=== PATIENT | male | born 1925 | race African-American/Black ===

== ENCOUNTER 2017-04-20 00:18 | Emergency (ER) | payer MEDICAID, MEDICARE ==
[~2017-04-20] VITALS: Ht 172.7 cm; Wt 100.0 kg
[~2017-04-20 00:18] MED LIST: ALLO100T PO; ATEN-42 PO; CLOP75TA33 PO; DONE10TA11 PO; LEVO500T15 PO; LEVO75TA7 PO; LISI-604 PO; METF500T4 PO; PRAN1 PO; SIMV20TA6 PO; TERA5CAP4 PO; vancomycin IV
[2017-04-20] MEDS ORDERED: SODIUM CHLORIDE 0.9% 1,000 ML IV ONE (00:27)
[2017-04-20 01:00] LABS: BASOPHILS % 0.3 % (0.0-2.0); EOSINOPHILS % 4.7 % (0.0-5.0); HEMATOCRIT. 29.3 % (42.0-52.0); HEMOGLOBIN. 9.9 g/dL (14.0-18.0); LYMPHOCYTES % 20.7 % (20.0-50.0); MEAN CORPUSCULAR HEMOGLOBIN 30.6 pg (28.0-32.0); MEAN CORPUSCULAR VOLUME 90.2 fL (80.0-94.0); MEAN PLATELET VOLUME 6.8 fl (7.4-10.4); MONOCYTES % 9.2 % (2.0-8.0); NEUTROPHILS % 65.1 % (40.0-76.0); PLATELET 311 x1000/uL (130-400); RED BLOOD CELL COUNT 3.24 mill/uL (4.7-6.1); RED CELL DISTRIBUTION WIDTH 14.6 % (11.6-14.6)
[2017-04-20 01:06] LABS: CHLORIDE 105 mEq/L (98-107)
[2017-04-20 01:07] LABS: INR 1.1; PROTHROMBIN TIME 11.4 sec
[2017-04-20 01:14] LABS: CARBON DIOXIDE 27 mEq/L (21-32)
[2017-04-20 02:21] LABS: GLUCOSE URINE NEGATIVE (NEGATIVE); KETONES URINE TRACE (NEGATIVE); LEUKOCYTE ESTERASE URINE 3+ (NEGATIVE); NITRITE URINE NEGATIVE (NEGATIVE); OCCULT BLOOD URINE 3+ (NEGATIVE); PH URINE 6.5 (4.5-8.0); PROTEIN URINE 2+ (NEGATIVE); SPECIFIC GRAVITY URINE 1.011 (1.005-1.030)
[2017-04-20 02:28] LABS: CLARITY URINE CLOUDY (CLEAR); COLOR URINE BLOODY (YELLOW)
[2017-04-20] MEDS ORDERED: LEVOFLOXACIN 750MG PREMIX 150 ML IV ONE (02:45)
[2017-04-20 07:30] VITALS: BP 105/50
== END 2017-04-20 09:25 | disposition home or self-care (01) ==
LOC: ER 00:18
DX: N30.01 Acute cystitis with hematuria (principal); E11.9 Type 2 diabetes mellitus without complications; J44.9 Chronic obstructive pulmonary disease, unspecified; I10 Essential (primary) hypertension; I25.10 Atherosclerotic heart disease of native coronary artery without angina pectoris; F03.90 Unspecified dementia, unspecified severity, without behavioral disturbance, psychotic disturbance, mood disturbance, and anxiety; N40.0 Benign prostatic hyperplasia without lower urinary tract symptoms; E03.9 Hypothyroidism, unspecified; Z86.73 Personal history of transient ischemic attack (TIA), and cerebral infarction without residual deficits; Z88.0 Allergy status to penicillin
CPT/HCPCS: 36415; 80053; 81001; 85025; 85610; 96361; 96365; 96366; 99285; J1956; J7030

== ENCOUNTER 2017-05-14 12:54 | Inpatient (IN) | payer MEDICARE, MEDICAID ==
[2017-05-14] VITALS (34 sets, daily range): BP systolic 69–136; BP diastolic 41–79
[~2017-05-14] VITALS: Ht 182.9 cm; Wt 93.9 kg
[~2017-05-14 12:54] MED LIST changes: +ETOMIDATE 2MG/ML 10ML VIAL IV ONE; -LEVO500T15 PO; +LEVO500T2 PO; +STERILE WATER FOR INJECTION 10ML VIAL ONE; +VECURONIUM BROMIDE 10 MG/VIAL IV ONE
[2017-05-14] MEDS ORDERED: EPINEPHRINE 0.1MG/ML (1:10,000) 10ML SYR ONE (13:00)
[2017-05-14] MEDS ORDERED: SODIUM CHLORIDE 0.9% 1,000 ML IV ONE (13:10)
[2017-05-14] MEDS ORDERED: ATROPINE SULFATE 1MG/10ML SYR ONE (13:22)
[2017-05-14 13:52] LABS: CLARITY URINE TURBID (CLEAR); COLOR URINE DARK YELLOW (YELLOW); GLUCOSE URINE NEGATIVE (NEGATIVE); KETONES URINE TRACE (NEGATIVE); LEUKOCYTE ESTERASE URINE 3+ (NEGATIVE); NITRITE URINE NEGATIVE (NEGATIVE); OCCULT BLOOD URINE 3+ (NEGATIVE); PROTEIN URINE 3+ (NEGATIVE); SPECIFIC GRAVITY URINE 1.021 (1.005-1.030)
[2017-05-14] MEDS ORDERED: DOPAMINE 400MG PREMIX 250 ML IV ONE ×2 (13:57→14:30)
[2017-05-14] MEDS ORDERED: ATROPINE SULFATE 1MG/10ML SYR IV ONE (14:00)
[2017-05-14] MEDS ORDERED: VECURONIUM BROMIDE 10 MG/VIAL IV ONE (14:00)
[2017-05-14] MEDS ORDERED: NOREPINEPHRINE 4 MG in DEXT 5% WATER 246 ML IV ONE ×2 (14:00→14:15)
[2017-05-14] MEDS ORDERED: ETOMIDATE 2MG/ML 10ML VIAL IV ONE (14:00)
[2017-05-14 14:09] LABS: BG BASE EXCESS -7.2 mmol/L (-2.0-2.0); BG CARBOXYHEMOGLOBIN 0.3 % (0.5-1.5); BG DEOXYHEMOGLOBIN 0.2 % (0.0-5.0); BG HCO3 ACT 17.9 mmol/L (22.0-26.0); BG METHEMOGLOBIN 0.3 % (0.0-1.5); BG OXYGEN SATURATION 99.8 % (92.0-98.5); BG OXYHEMOGLOBIN 99.2 % (94.0-97.0); BG PCO2 34.9 mmHg (35.0-45.0); BG PH 7.329 (7.350-7.450); BG PO2 458.2 mmHg (75.0-100.0); BG SAMPLE SITE RIGHT BRACHIAL; BG TIDAL VOLUME(mL) 600 mL; BG VENT MODE VENT - A/C; BG VENT RATE 14 set
[2017-05-14 14:18] LABS: BASOPHILS % 0.3 % (0.0-2.0); EOSINOPHILS % 1.5 % (0.0-5.0); HEMATOCRIT. 31.9 % (42.0-52.0); HEMOGLOBIN. 10.4 g/dL (14.0-18.0); LYMPHOCYTES % 32.2 % (20.0-50.0); MEAN CORPUSCULAR HEMOGLOBIN 29.8 pg (28.0-32.0); MEAN CORPUSCULAR VOLUME 91.6 fL (80.0-94.0); MEAN PLATELET VOLUME 7.7 fl (7.4-10.4); MONOCYTES % 7.4 % (2.0-8.0); NEUTROPHILS % 58.6 % (40.0-76.0); PLATELET 172 x1000/uL (130-400); RED BLOOD CELL COUNT 3.48 mill/uL (4.7-6.1); RED CELL DISTRIBUTION WIDTH 16.2 % (11.6-14.6)
[2017-05-14 14:25] LABS: CHLORIDE 112 mEq/L (98-107)
[2017-05-14 14:27] LABS: INR 1.3; PARTIAL THROMBOPLASTIN TIME 40.1 sec (23.4-31.0); PROTHROMBIN TIME 13.4 sec (9.4-11.6)
[2017-05-14 14:33] LABS: CARBON DIOXIDE 23 mEq/L (21-32)
[2017-05-14 14:35] LABS: TROPONIN I < 0.02 ng/mL (0.00-0.04)
[2017-05-14] MEDS ORDERED: LEVOFLOXACIN 500MG PREMIX 100 ML IV ONE (15:15)
[2017-05-14] MEDS ORDERED: IPRATROPIUM/ALBUTEROL 0.5-3(2.5)MG/3ML NEB HHN PRN (15:45)
[2017-05-14] MEDS ORDERED: GUAIFENESIN 200MG/10ML SUGAR FREE UDC PO PRN (16:30)
[2017-05-14] MEDS ORDERED: NA PHOS,M-B/NA PHOS,DI-BA ENEMA 118ML PR PRN (16:30)
[2017-05-14] MEDS ORDERED: ACETAMINOPHEN 650MG SUPP PR PRN (16:30)
[2017-05-14] MEDS ORDERED: NOREPINEPHRINE 4 MG in DEXT 5% WATER 246 ML IV PRN ×2 (16:30→17:00)
[2017-05-14] MEDS ORDERED: IPRATROPIUM/ALBUTEROL 0.5-3(2.5)MG/3ML NEB INH SCH (16:30)
[2017-05-14] MEDS ORDERED: ACETAMINOPHEN 325MG TABLET PO PRN (16:30)
[2017-05-14] MEDS ORDERED: CLONIDINE 0.1MG TABLET PO PRN (16:30)
[2017-05-14] MEDS ORDERED: MAGNESIUM/ALUMINUM HYDROXIDE/SIMETHICONE 30ML UDC PO PRN (16:30)
[2017-05-14] MEDS ORDERED: DIPHENHYDRAMINE 50MG/ML VIAL IV PRN (16:30)
[2017-05-14] MEDS ORDERED: ONDANSETRON HCL 4MG/2ML VIAL IV PRN (16:30)
[2017-05-14] MEDS ORDERED: DOCUSATE SODIUM 100MG CAPSULE PO PRN (16:30)
[2017-05-14] MEDS ORDERED: PIPERACILLIN/TAZ 3.375G PREMIX 50 ML IV SCH (16:30)
[2017-05-14] MEDS ORDERED: IPRATROPIUM/ALBUTEROL 0.5-3(2.5)MG/3ML NEB INH PRN (16:30)
[2017-05-14] MEDS ORDERED: ENOXAPARIN 40MG/0.4ML SYR SUBCUT SCH (17:00)
[2017-05-14] MEDS: DEXT 5%/0.45% NACL 1000ML 1,000 ML IV SCH (17:55)
[2017-05-14] MEDS: IPRATROPIUM/ALBUTEROL 0.5-3(2.5)MG/3ML NEB HHN SCH (20:27)
[2017-05-14] MEDS: ENOXAPARIN 30MG/0.3ML SYR SUBCUT SCH (20:45)
[2017-05-14] MEDS: MEROPENEM 1000MG in NORMAL SALINE 100ML IV SCH (20:45)
[2017-05-14] MEDS: ASPIRIN 81MG TABLET PO SCH (20:46)
[2017-05-14] MEDS: ATORVASTATIN CALCIUM 10MG TABLET NG SCH (20:46)
[2017-05-14] MEDS ORDERED: LEVOFLOXACIN 500MG PREMIX 100 ML IV NR (21:00)
[2017-05-14] MEDS ORDERED: VANCOMYCIN 1500MG in DEXTROSE 5% WATER 250ML IV NR (21:00)
[2017-05-14] MEDS: SODIUM CHLORIDE 0.9% INJ 3ML FLUSH IVF SCH (21:17)
[2017-05-14] MEDS ORDERED: NOREPINEPHRINE 8 MG in DEXT 5% WATER 242 ML IV PRN (22:00)
[2017-05-14 23:30] LABS: CREATINE KINASE 39 IU/L (39-308)
[2017-05-15] VITALS (92 sets, daily range): BP systolic 78–133; BP diastolic 44–78
[2017-05-15] MEDS ORDERED: PHENYLEPHRINE 80 MG in DEXT 5% WATER 500 ML IV PRN ×2
[2017-05-15] MEDS: IPRATROPIUM/ALBUTEROL 0.5-3(2.5)MG/3ML NEB HHN SCH ×6 (00:16→20:22)
[2017-05-15] MEDS: NOREPINEPHRINE 32 MG in DEXT 5% WATER 468 ML IV PRN (04:22)
[2017-05-15] MEDS: DEXT 5%/0.45% NACL 1000ML 1,000 ML IV SCH ×3 (05:21→15:24)
[2017-05-15] MEDS: SODIUM CHLORIDE 0.9% INJ 3ML FLUSH IVF SCH ×3 (05:21→21:03)
[2017-05-15 05:46] LABS: HEMATOCRIT. 33.2 % (42.0-52.0); HEMOGLOBIN. 10.9 g/dL (14.0-18.0); MEAN CORPUSCULAR HEMOGLOBIN 29.7 pg (28.0-32.0); MEAN CORPUSCULAR VOLUME 90.2 fL (80.0-94.0); MEAN PLATELET VOLUME 8.4 fl (7.4-10.4); PLATELET 203 x1000/uL (130-400); RED BLOOD CELL COUNT 3.68 mill/uL (4.7-6.1); RED CELL DISTRIBUTION WIDTH 16.1 % (11.6-14.6)
[2017-05-15 06:47] LABS: CARBON DIOXIDE 17 mEq/L (21-32); CHLORIDE 105 mEq/L (98-107); HDL CHOLESTEROL 47 mg/dL (40-59); LDL CHOLESTEROL 19 mg/dL (5-100)
[2017-05-15 06:56] LABS: CREATINE KINASE 45 IU/L (39-308)
[2017-05-15] MEDS: MEROPENEM 1000MG in NORMAL SALINE 100ML IV SCH ×2 (08:39→20:18)
[2017-05-15] MEDS: PANTOPRAZOLE SODIUM 40 MG/VIAL IV SCH (08:39)
[2017-05-15 08:43] LABS: BG BASE EXCESS -7.5 mmol/L (-2.0-2.0); BG CARBOXYHEMOGLOBIN 0.3 % (0.5-1.5); BG DEOXYHEMOGLOBIN 2.2 % (0.0-5.0); BG FRACTION INSPIRED OXYGEN 50; BG HCO3 ACT 16.4 mmol/L (22.0-26.0); BG METHEMOGLOBIN 0.1 % (0.0-1.5); BG OXYGEN SATURATION 97.8 % (92.0-98.5); BG OXYHEMOGLOBIN 97.4 % (94.0-97.0); BG PCO2 28.2 mmHg (35.0-45.0); BG PH 7.382 (7.350-7.450); BG PO2 106.6 mmHg (75.0-100.0); BG SAMPLE SITE RIGHT RADIAL; BG TIDAL VOLUME(mL) 550 mL; BG VENT MODE VENT - A/C; BG VENT RATE 14 set
[2017-05-15 11:42] LABS: PLATELET ESTIMATE NORMAL
[2017-05-15] MEDS: ENOXAPARIN 30MG/0.3ML SYR SUBCUT SCH (19:42)
[2017-05-15] MEDS: LEVOFLOXACIN 250MG PREMIX 50 ML IV SCH (19:43)
[2017-05-15] MEDS: ATORVASTATIN CALCIUM 10MG TABLET NG SCH (20:18)
[2017-05-15] MEDS: ASPIRIN 81MG TABLET PO SCH (20:18)
[2017-05-16] VITALS (94 sets, daily range): BP systolic 77–143; BP diastolic 38–75
[2017-05-16] MEDS: IPRATROPIUM/ALBUTEROL 0.5-3(2.5)MG/3ML NEB HHN SCH ×6 (00:11→20:42)
[2017-05-16] MEDS: DEXT 5%/0.45% NACL 1000ML 1,000 ML IV SCH ×3 (02:20→22:30)
[2017-05-16] MEDS ORDERED: ATROPINE SULFATE 1MG/10ML SYR IV PRN (04:15)
[2017-05-16 05:52] LABS: HEMATOCRIT. 29.5 % (42.0-52.0); HEMOGLOBIN. 9.9 g/dL (14.0-18.0); MEAN CORPUSCULAR HEMOGLOBIN 30.1 pg (28.0-32.0); MEAN CORPUSCULAR VOLUME 89.3 fL (80.0-94.0); MEAN PLATELET VOLUME 8.1 fl (7.4-10.4); PLATELET 162 x1000/uL (130-400); RED CELL DISTRIBUTION WIDTH 16.5 % (11.6-14.6)
[2017-05-16] MEDS: SODIUM CHLORIDE 0.9% INJ 3ML FLUSH IVF SCH ×3 (06:26→22:30)
[2017-05-16] MEDS: NOREPINEPHRINE 32 MG in DEXT 5% WATER 468 ML IV PRN ×2 (06:29→15:55)
[2017-05-16] MEDS: PANTOPRAZOLE SODIUM 40 MG/VIAL IV SCH (08:06)
[2017-05-16] MEDS: MEROPENEM 1000MG in NORMAL SALINE 100ML IV SCH ×2 (08:07→21:06)
[2017-05-16 08:45] LABS: NUCLEATED RED BLOOD CELLS 1 /100 WBC; PLATELET ESTIMATE NORMAL
[2017-05-16 08:52] LABS: BG BASE EXCESS -5.9 mmol/L (-2.0-2.0); BG CARBOXYHEMOGLOBIN 0.3 % (0.5-1.5); BG DEOXYHEMOGLOBIN 1.1 % (0.0-5.0); BG FRACTION INSPIRED OXYGEN 40; BG HCO3 ACT 18.5 mmol/L (22.0-26.0); BG METHEMOGLOBIN 0.3 % (0.0-1.5); BG OXYGEN SATURATION 98.9 % (92.0-98.5); BG OXYHEMOGLOBIN 98.3 % (94.0-97.0); BG PCO2 32.8 mmHg (35.0-45.0); BG PO2 153.8 mmHg (75.0-100.0); BG SAMPLE SITE LEFT RADIAL; BG TIDAL VOLUME(mL) 550 mL; BG TOTAL HEMOGLOBIN 10.5 g/dL (12.0-18.0); BG VENT MODE VENT - A/C; BG VENT RATE 14 set
[2017-05-16] MEDS ORDERED: VANCOMYCIN 1250MG in DEXTROSE 5% WATER 250ML IV NR (10:00)
[2017-05-16] MEDS: MAGNESIUM OXIDE 400MG TABLET NG SCH (11:48)
[2017-05-16] MEDS: ENOXAPARIN 30MG/0.3ML SYR SUBCUT SCH (20:08)
[2017-05-16] MEDS: LEVOFLOXACIN 250MG PREMIX 50 ML IV SCH (20:13)
[2017-05-16] MEDS: ATORVASTATIN CALCIUM 10MG TABLET NG SCH (21:06)
[2017-05-16] MEDS: ASPIRIN 81MG TABLET PO SCH (21:08)
[2017-05-17] VITALS (103 sets, daily range): BP systolic 71–136; BP diastolic 40–88
[2017-05-17] MEDS: IPRATROPIUM/ALBUTEROL 0.5-3(2.5)MG/3ML NEB HHN SCH ×6 (00:25→20:16)
[2017-05-17 05:01] LABS: HEMATOCRIT. 27.4 % (42.0-52.0); HEMOGLOBIN. 9.4 g/dL (14.0-18.0); MEAN CORPUSCULAR HEMOGLOBIN 30.4 pg (28.0-32.0); MEAN PLATELET VOLUME 8.2 fl (7.4-10.4); PLATELET 133 x1000/uL (130-400); RED BLOOD CELL COUNT 3.08 mill/uL (4.7-6.1); RED CELL DISTRIBUTION WIDTH 16.5 % (11.6-14.6)
[2017-05-17] MEDS: SODIUM CHLORIDE 0.9% INJ 3ML FLUSH IVF SCH ×2 (06:43→14:13)
[2017-05-17] MEDS: DEXT 5%/0.45% NACL 1000ML 1,000 ML IV SCH ×2 (06:53→09:16)
[2017-05-17] MEDS: PANTOPRAZOLE SODIUM 40 MG/VIAL IV SCH (09:16)
[2017-05-17] MEDS: MEROPENEM 1000MG in NORMAL SALINE 100ML IV SCH ×2 (09:16→21:03)
[2017-05-17] MEDS: MAGNESIUM OXIDE 400MG TABLET NG SCH (09:16)
[2017-05-17] MEDS: NOREPINEPHRINE 32 MG in DEXT 5% WATER 468 ML IV PRN ×2 (09:33→13:38)
[2017-05-17] MEDS ORDERED: MAGNESIUM 2 G PREMIX 50 ML IV SCH (11:00)
[2017-05-17] MEDS ORDERED: BLOOD SUGAR DIAGNOSTIC STRIP TEST SCH ×2 (12:30→12:50)
[2017-05-17] MEDS ORDERED: INSULIN LISPRO 100 UNITS/ML SUBCUT SCH ×2 (12:30→13:20)
[2017-05-17 12:31] LABS: NUCLEATED RED BLOOD CELLS 2 /100 WBC; PLATELET ESTIMATE NORMAL
[2017-05-17] MEDS: VANCOMYCIN 1 G PREMIX 200 ML IV SCH (15:20)
[2017-05-17] MEDS: BLOOD SUGAR DIAGNOSTIC STRIP TEST SCH (17:58)
[2017-05-17] MEDS: INSULIN LISPRO 100 UNITS/ML SUBCUT SCH (18:06)
[2017-05-17] MEDS: ENOXAPARIN 30MG/0.3ML SYR SUBCUT SCH (19:58)
[2017-05-17] MEDS: LEVOFLOXACIN 250MG PREMIX 50 ML IV SCH (19:59)
[2017-05-17] MEDS: ATORVASTATIN CALCIUM 10MG TABLET NG SCH (21:04)
[2017-05-17] MEDS: ASPIRIN 81MG TABLET PO SCH (21:04)
[2017-05-18] VITALS (78 sets, daily range): BP systolic 79–132; BP diastolic 35–75
[2017-05-18] MEDS: IPRATROPIUM/ALBUTEROL 0.5-3(2.5)MG/3ML NEB HHN SCH ×6 (00:29→20:03)
[2017-05-18] MEDS: INSULIN LISPRO 100 UNITS/ML SUBCUT SCH ×4 (00:46→18:23)
[2017-05-18] MEDS: SODIUM CHLORIDE 0.9% INJ 3ML FLUSH IVF SCH ×4 (00:48→20:46)
[2017-05-18] MEDS: BLOOD SUGAR DIAGNOSTIC STRIP TEST SCH ×4 (06:00→18:16)
[2017-05-18 07:57] LABS: BG BASE EXCESS -2.7 mmol/L (-2.0-2.0); BG CARBOXYHEMOGLOBIN 0.2 % (0.5-1.5); BG DEOXYHEMOGLOBIN 1.2 % (0.0-5.0); BG FRACTION INSPIRED OXYGEN 40; BG HCO3 ACT 20.5 mmol/L (22.0-26.0); BG METHEMOGLOBIN 0.1 % (0.0-1.5); BG OXYGEN SATURATION 98.8 % (92.0-98.5); BG OXYHEMOGLOBIN 98.5 % (94.0-97.0); BG PCO2 29.6 mmHg (35.0-45.0); BG PH 7.458 (7.350-7.450); BG PO2 169.1 mmHg (75.0-100.0); BG SAMPLE SITE RIGHT RADIAL; BG TIDAL VOLUME(mL) 550 mL; BG TOTAL HEMOGLOBIN 8.9 g/dL (12.0-18.0); BG VENT MODE VENT - A/C; BG VENT RATE 14 set
[2017-05-18] MEDS: PANTOPRAZOLE SODIUM 40 MG/VIAL IV SCH (08:07)
[2017-05-18] MEDS: MEROPENEM 1000MG in NORMAL SALINE 100ML IV SCH ×2 (08:08→20:45)
[2017-05-18] MEDS: MAGNESIUM OXIDE 400MG TABLET NG SCH (08:08)
[2017-05-18 08:52] LABS: HEMATOCRIT 24.8 % (42.0-52.0); HEMOGLOBIN 8.4 g/dL (14.0-18.0); MEAN CORPUSCULAR HEMOGLOBIN 30.1 pg (28.0-32.0); MEAN CORPUSCULAR VOLUME 88.8 fL (80.0-94.0); PLATELET 129 x1000/uL (130-400); RED BLOOD CELL COUNT 2.79 mill/uL (4.7-6.1); RED CELL DISTRIBUTION WIDTH 16.3 % (11.6-14.6)
[2017-05-18] MEDS: MIDODRINE HCL 5MG TABLET PO SCH ×3 (09:23→18:17)
[2017-05-18] MEDS ORDERED: ACETYLCYSTEINE 100MG/ML 10% VIAL 4ML INH SCH (12:00)
[2017-05-18] MEDS: ACETYLCYSTEINE 100MG/ML 10% VIAL 4ML INH SCH ×3 (12:21→20:04)
[2017-05-18] MEDS: VANCOMYCIN 1 G PREMIX 200 ML IV SCH (15:27)
[2017-05-18] MEDS: DOCUSATE SODIUM SUGAR FREE 100MG/10ML UDC NG PRN (18:17)
[2017-05-18] MEDS: ASPIRIN 81MG TABLET PO SCH (20:45)
[2017-05-18] MEDS: LEVOFLOXACIN 250MG PREMIX 50 ML IV SCH (20:45)
[2017-05-18] MEDS: ATORVASTATIN CALCIUM 10MG TABLET NG SCH (20:46)
[2017-05-19] VITALS (53 sets, daily range): BP systolic 82–134; BP diastolic 38–98
[2017-05-19] MEDS: IPRATROPIUM/ALBUTEROL 0.5-3(2.5)MG/3ML NEB HHN SCH ×7 (00:05→23:55)
[2017-05-19] MEDS: ACETYLCYSTEINE 100MG/ML 10% VIAL 4ML INH SCH ×6 (00:05→23:54)
[2017-05-19] MEDS: BLOOD SUGAR DIAGNOSTIC STRIP TEST SCH ×4 (00:15→17:04)
[2017-05-19] MEDS: INSULIN LISPRO 100 UNITS/ML SUBCUT SCH ×4 (00:16→17:04)
[2017-05-19] MEDS ORDERED: VANCOMYCIN 1 G PREMIX 200 ML IV SCH (03:00)
[2017-05-19] MEDS: VANCOMYCIN 1 G PREMIX 200 ML IV SCH (03:10)
[2017-05-19] MEDS: SODIUM CHLORIDE 0.9% INJ 3ML FLUSH IVF SCH ×3 (05:07→21:17)
[2017-05-19 06:50] LABS: HEMATOCRIT 22.8 % (42.0-52.0); HEMOGLOBIN 7.9 g/dL (14.0-18.0); MEAN CORPUSCULAR HEMOGLOBIN 30.7 pg (28.0-32.0); MEAN CORPUSCULAR VOLUME 88.9 fL (80.0-94.0); PLATELET 107 x1000/uL (130-400); RED BLOOD CELL COUNT 2.56 mill/uL (4.7-6.1); RED CELL DISTRIBUTION WIDTH 15.8 % (11.6-14.6)
[2017-05-19] MEDS: PANTOPRAZOLE SODIUM 40 MG/VIAL IV SCH (08:26)
[2017-05-19] MEDS: MEROPENEM 1000MG in NORMAL SALINE 100ML IV SCH ×2 (08:26→21:17)
[2017-05-19] MEDS: MIDODRINE HCL 5MG TABLET PO SCH ×3 (08:27→17:06)
[2017-05-19] MEDS: MAGNESIUM OXIDE 400MG TABLET NG SCH (08:27)
[2017-05-19] MEDS: METOCLOPRAMIDE HCL 10MG/2ML VIAL IV SCH ×2 (11:26→17:06)
[2017-05-19 12:58] LABS: BG BASE EXCESS 0.3 mmol/L (-2.0-2.0); BG CARBOXYHEMOGLOBIN 0.3 % (0.5-1.5); BG DEOXYHEMOGLOBIN 2.1 % (0.0-5.0); BG FRACTION INSPIRED OXYGEN 40; BG METHEMOGLOBIN 0.3 % (0.0-1.5); BG OXYGEN SATURATION 97.9 % (92.0-98.5); BG OXYHEMOGLOBIN 97.3 % (94.0-97.0); BG PCO2 35.2 mmHg (35.0-45.0); BG PH 7.452 (7.350-7.450); BG PO2 109.7 mmHg (75.0-100.0); BG PRESSURE SUPPORT 6; BG SAMPLE SITE RIGHT BRACHIAL; BG TOTAL HEMOGLOBIN 10.1 g/dL (12.0-18.0); BG VENT MODE VENT - CPAP
[2017-05-19] MEDS: NOREPINEPHRINE 32 MG in DEXT 5% WATER 468 ML IV PRN (18:58)
[2017-05-19] MEDS: ASPIRIN 81MG TABLET PO SCH (21:17)
[2017-05-19] MEDS: ATORVASTATIN CALCIUM 10MG TABLET NG SCH (21:17)
[2017-05-20] VITALS (69 sets, daily range): BP systolic 83–125; BP diastolic 40–73
[2017-05-20] MEDS: BLOOD SUGAR DIAGNOSTIC STRIP TEST SCH ×4 (00:04→17:28)
[2017-05-20] MEDS: METOCLOPRAMIDE HCL 10MG/2ML VIAL IV SCH ×4 (00:08→17:33)
[2017-05-20] MEDS: INSULIN LISPRO 100 UNITS/ML SUBCUT SCH ×4 (00:10→17:34)
[2017-05-20] MEDS: ACETYLCYSTEINE 100MG/ML 10% VIAL 4ML INH SCH ×5 (04:08→20:30)
[2017-05-20] MEDS: IPRATROPIUM/ALBUTEROL 0.5-3(2.5)MG/3ML NEB HHN SCH ×5 (04:08→20:30)
[2017-05-20] MEDS: SODIUM CHLORIDE 0.9% INJ 3ML FLUSH IVF SCH ×3 (05:21→22:31)
[2017-05-20 05:57] LABS: BASOPHILS % 0.4 % (0.0-2.0); EOSINOPHILS % 4.8 % (0.0-5.0); HEMATOCRIT. 24.4 % (42.0-52.0); HEMOGLOBIN. 8.2 g/dL (14.0-18.0); MEAN CORPUSCULAR VOLUME 89.6 fL (80.0-94.0); MEAN PLATELET VOLUME 8.6 fl (7.4-10.4); MONOCYTES % 13.4 % (2.0-8.0); NEUTROPHILS % 70.4 % (40.0-76.0); PLATELET 118 x1000/uL (130-400); RED BLOOD CELL COUNT 2.72 mill/uL (4.7-6.1); RED CELL DISTRIBUTION WIDTH 15.9 % (11.6-14.6)
[2017-05-20 07:39] LABS: BG BASE EXCESS 2.1 mmol/L (-2.0-2.0); BG CARBOXYHEMOGLOBIN 0.3 % (0.5-1.5); BG METHEMOGLOBIN 0.2 % (0.0-1.5); BG OXYHEMOGLOBIN 97.5 % (94.0-97.0); BG PCO2 37.7 mmHg (35.0-45.0); BG PH 7.457 (7.350-7.450); BG PO2 112.9 mmHg (75.0-100.0); BG SAMPLE SITE RIGHT RADIAL; BG VENT MODE MASK - AEROSOL
[2017-05-20] MEDS: PANTOPRAZOLE SODIUM 40 MG/VIAL IV SCH (08:24)
[2017-05-20] MEDS: MEROPENEM 1000MG in NORMAL SALINE 100ML IV SCH ×2 (08:24→20:12)
[2017-05-20] MEDS: MAGNESIUM OXIDE 400MG TABLET NG SCH (08:24)
[2017-05-20] MEDS: MIDODRINE HCL 5MG TABLET PO SCH ×3 (08:24→17:33)
[2017-05-20] MEDS: VANCOMYCIN 1 G PREMIX 200 ML IV SCH (15:15)
[2017-05-20] MEDS: ASPIRIN 81MG TABLET PO SCH (20:12)
[2017-05-20] MEDS: ATORVASTATIN CALCIUM 10MG TABLET NG SCH (20:12)
[2017-05-20] MEDS: DOCUSATE SODIUM SUGAR FREE 100MG/10ML UDC NG PRN (20:12)
[2017-05-21] VITALS (49 sets, daily range): BP systolic 92–143; BP diastolic 36–79
[2017-05-21] MEDS: METOCLOPRAMIDE HCL 10MG/2ML VIAL IV SCH ×4 (00:04→18:02)
[2017-05-21] MEDS: INSULIN LISPRO 100 UNITS/ML SUBCUT SCH ×4 (00:04→18:01)
[2017-05-21] MEDS: BLOOD SUGAR DIAGNOSTIC STRIP TEST SCH ×4 (00:07→17:50)
[2017-05-21] MEDS: ACETYLCYSTEINE 100MG/ML 10% VIAL 4ML INH SCH ×5 (00:24→20:05)
[2017-05-21] MEDS: IPRATROPIUM/ALBUTEROL 0.5-3(2.5)MG/3ML NEB HHN SCH ×6 (00:24→20:04)
[2017-05-21] MEDS: SODIUM CHLORIDE 0.9% INJ 3ML FLUSH IVF SCH ×3 (05:46→20:23)
[2017-05-21 06:43] LABS: HEMOGLOBIN. 8.6 g/dL (14.0-18.0); MEAN CORPUSCULAR VOLUME 90.3 fL (80.0-94.0); MEAN PLATELET VOLUME 8.3 fl (7.4-10.4); PLATELET 146 x1000/uL (130-400); RED BLOOD CELL COUNT 2.88 mill/uL (4.7-6.1); RED CELL DISTRIBUTION WIDTH 15.9 % (11.6-14.6)
[2017-05-21 07:00] LABS: CARBON DIOXIDE 27 mEq/L (21-32); CHLORIDE 109 mEq/L (98-107)
[2017-05-21] MEDS: PANTOPRAZOLE SODIUM 40 MG/VIAL IV SCH (09:01)
[2017-05-21] MEDS: MIDODRINE HCL 5MG TABLET PO SCH ×3 (09:02→17:16)
[2017-05-21] MEDS: MEROPENEM 1000MG in NORMAL SALINE 100ML IV SCH ×2 (09:03→20:23)
[2017-05-21] MEDS: MAGNESIUM OXIDE 400MG TABLET NG SCH (09:03)
[2017-05-21 11:05] LABS: PLATELET ESTIMATE NORMAL
[2017-05-21 16:52] LABS: GLUCOSE URINE TRACE (NEGATIVE); KETONES URINE 2+ (NEGATIVE); LEUKOCYTE ESTERASE URINE 3+ (NEGATIVE); NITRITE URINE POSITIVE (NEGATIVE); OCCULT BLOOD URINE 3+ (NEGATIVE); PROTEIN URINE 3+ (NEGATIVE); SPECIFIC GRAVITY URINE 1.015 (1.005-1.030)
[2017-05-21 16:57] LABS: CLARITY URINE CLOUDY (CLEAR); COLOR URINE BLOODY (YELLOW)
[2017-05-21] MEDS: ATORVASTATIN CALCIUM 10MG TABLET NG SCH (20:23)
[2017-05-21] MEDS: DOCUSATE SODIUM SUGAR FREE 100MG/10ML UDC NG PRN (20:23)
[2017-05-22] VITALS (34 sets, daily range): BP systolic 103–160; BP diastolic 47–92
[2017-05-22] MEDS: BLOOD SUGAR DIAGNOSTIC STRIP TEST SCH ×4 (00:05→17:15)
[2017-05-22] MEDS: METOCLOPRAMIDE HCL 10MG/2ML VIAL IV SCH ×4 (00:13→17:15)
[2017-05-22] MEDS: INSULIN LISPRO 100 UNITS/ML SUBCUT SCH ×4 (00:14→17:14)
[2017-05-22] MEDS: ACETYLCYSTEINE 100MG/ML 10% VIAL 4ML INH SCH ×6 (00:30→20:00)
[2017-05-22] MEDS: IPRATROPIUM/ALBUTEROL 0.5-3(2.5)MG/3ML NEB HHN SCH ×6 (00:30→20:11)
[2017-05-22] MEDS: VANCOMYCIN 1 G PREMIX 200 ML IV SCH (02:48)
[2017-05-22] MEDS: SODIUM CHLORIDE 0.9% INJ 3ML FLUSH IVF SCH ×3 (05:29→21:40)
[2017-05-22] MEDS: DOCUSATE SODIUM SUGAR FREE 100MG/10ML UDC NG PRN (05:29)
[2017-05-22 05:59] LABS: HEMOGLOBIN. 8.5 g/dL (14.0-18.0); MEAN CORPUSCULAR HEMOGLOBIN 30.7 pg (28.0-32.0); MEAN CORPUSCULAR VOLUME 90.3 fL (80.0-94.0); MEAN PLATELET VOLUME 8.4 fl (7.4-10.4); PLATELET 200 x1000/uL (130-400); RED BLOOD CELL COUNT 2.76 mill/uL (4.7-6.1); RED CELL DISTRIBUTION WIDTH 15.6 % (11.6-14.6)
[2017-05-22 06:45] LABS: CARBON DIOXIDE 29 mEq/L (21-32); CHLORIDE 106 mEq/L (98-107)
[2017-05-22] MEDS: PANTOPRAZOLE SODIUM 40 MG/VIAL IV SCH (09:30)
[2017-05-22] MEDS: MAGNESIUM OXIDE 400MG TABLET NG SCH (09:30)
[2017-05-22] MEDS: MEROPENEM 1000MG in NORMAL SALINE 100ML IV SCH ×2 (09:30→21:40)
[2017-05-22] MEDS: MIDODRINE HCL 5MG TABLET PO SCH (09:30)
[2017-05-22 10:55] LABS: PLATELET ESTIMATE NORMAL
[2017-05-22] MEDS: MIDODRINE HCL 2.5MG TABLET PO SCH ×2 (12:57→16:55)
[2017-05-22] MEDS: INSULIN DETEMIR UD 100 UNITS/ML SYR SUBCUT SCH (12:58)
[2017-05-22] MEDS: ATORVASTATIN CALCIUM 10MG TABLET NG SCH (21:40)
[2017-05-23] VITALS (18 sets, daily range): BP systolic 95–113; BP diastolic 46–65
[2017-05-23] MEDS: METOCLOPRAMIDE HCL 10MG/2ML VIAL IV SCH ×5 (00:24→23:30)
[2017-05-23] MEDS: BLOOD SUGAR DIAGNOSTIC STRIP TEST SCH ×5 (00:24→23:26)
[2017-05-23] MEDS: IPRATROPIUM/ALBUTEROL 0.5-3(2.5)MG/3ML NEB HHN SCH ×6 (00:28→20:41)
[2017-05-23] MEDS: ACETYLCYSTEINE 100MG/ML 10% VIAL 4ML INH SCH ×6 (00:28→20:41)
[2017-05-23] MEDS: SODIUM CHLORIDE 0.9% INJ 3ML FLUSH IVF SCH ×3 (06:38→21:05)
[2017-05-23] MEDS: INSULIN LISPRO 100 UNITS/ML SUBCUT SCH ×5 (06:43→23:27)
[2017-05-23 08:02] LABS: BASOPHILS % 0.7 % (0.0-2.0); EOSINOPHILS % 5.4 % (0.0-5.0); HEMATOCRIT. 22.7 % (42.0-52.0); HEMOGLOBIN. 7.5 g/dL (14.0-18.0); LYMPHOCYTES % 10.3 % (20.0-50.0); MEAN CORPUSCULAR HEMOGLOBIN 29.9 pg (28.0-32.0); MEAN CORPUSCULAR VOLUME 90.8 fL (80.0-94.0); MEAN PLATELET VOLUME 8.2 fl (7.4-10.4); MONOCYTES % 11.6 % (2.0-8.0); PLATELET 264 x1000/uL (130-400); RED CELL DISTRIBUTION WIDTH 15.7 % (11.6-14.6)
[2017-05-23 08:18] LABS: CARBON DIOXIDE 29 mEq/L (21-32); CHLORIDE 104 mEq/L (98-107)
[2017-05-23] MEDS: MIDODRINE HCL 2.5MG TABLET PO SCH ×3 (08:21→17:12)
[2017-05-23] MEDS: MAGNESIUM OXIDE 400MG TABLET NG SCH (08:22)
[2017-05-23] MEDS: PANTOPRAZOLE SODIUM 40 MG/VIAL IV SCH (08:22)
[2017-05-23] MEDS: INSULIN DETEMIR UD 100 UNITS/ML SYR SUBCUT SCH (09:22)
[2017-05-23] MEDS ORDERED: INSULIN DETEMIR UD 100 UNITS/ML SYR SUBCUT SCH (11:00)
[2017-05-23] MEDS: LEVOTHYROXINE SODIUM 50MCG TABLET PO SCH (12:57)
[2017-05-23] MEDS: SODIUM CHLORIDE 0.9% 1,000 ML IV SCH (12:57)
[2017-05-23] MEDS: ATORVASTATIN CALCIUM 10MG TABLET NG SCH (21:05)
[2017-05-24] VITALS (16 sets, daily range): BP systolic 92–122; BP diastolic 48–70
[2017-05-24] MEDS: ACETYLCYSTEINE 100MG/ML 10% VIAL 4ML INH SCH ×6 (00:11→20:08)
[2017-05-24] MEDS: IPRATROPIUM/ALBUTEROL 0.5-3(2.5)MG/3ML NEB HHN SCH ×6 (00:11→20:08)
[2017-05-24] MEDS: SODIUM CHLORIDE 0.9% 1,000 ML IV SCH (03:10)
[2017-05-24] MEDS: BLOOD SUGAR DIAGNOSTIC STRIP TEST SCH ×4 (05:07→23:47)
[2017-05-24] MEDS: METOCLOPRAMIDE HCL 10MG/2ML VIAL IV SCH ×4 (05:10→23:47)
[2017-05-24] MEDS: SODIUM CHLORIDE 0.9% INJ 3ML FLUSH IVF SCH ×2 (05:10→21:25)
[2017-05-24] MEDS: INSULIN LISPRO 100 UNITS/ML SUBCUT SCH ×4 (05:10→23:47)
[2017-05-24] MEDS: DEXTROSE 50% WATER 50ML SYRINGE IV PRN ×3 (05:16→17:19)
[2017-05-24] MEDS: LEVOTHYROXINE SODIUM 50MCG TABLET PO SCH (06:33)
[2017-05-24 06:53] LABS: INR 1.2; PARTIAL THROMBOPLASTIN TIME 29.8 sec (23.4-31.0); PROTHROMBIN TIME 12.1 sec (9.4-11.6)
[2017-05-24 06:55] LABS: HEMATOCRIT. 21.6 % (42.0-52.0); HEMOGLOBIN. 7.2 g/dL (14.0-18.0); MEAN CORPUSCULAR HEMOGLOBIN 29.9 pg (28.0-32.0); MEAN CORPUSCULAR VOLUME 90.3 fL (80.0-94.0); MEAN PLATELET VOLUME 7.5 fl (7.4-10.4); PLATELET 360 x1000/uL (130-400); RED BLOOD CELL COUNT 2.39 mill/uL (4.7-6.1); RED CELL DISTRIBUTION WIDTH 15.5 % (11.6-14.6)
[2017-05-24 07:36] LABS: CHLORIDE 106 mEq/L (98-107)
[2017-05-24 07:47] LABS: CARBON DIOXIDE 29 mEq/L (21-32); PHOSPHORUS 3.3 mg/dL (2.5-4.9)
[2017-05-24] MEDS: MAGNESIUM OXIDE 400MG TABLET NG SCH (08:23)
[2017-05-24] MEDS: PANTOPRAZOLE SODIUM 40 MG/VIAL IV SCH (08:23)
[2017-05-24] MEDS: VANCOMYCIN 1 G PREMIX 200 ML IV SCH (08:23)
[2017-05-24] MEDS: MIDODRINE HCL 2.5MG TABLET PO SCH ×3 (08:23→17:00)
[2017-05-24] MEDS ORDERED: SIMETHICONE 40 MG/0.6 ML 30ML ONE (12:00)
[2017-05-24] MEDS ORDERED: SODIUM CHLORIDE 0.9% 10ML VIAL ONE (12:00)
[2017-05-24] MEDS ORDERED: MIDAZOLAM HCL 5 MG/5 ML VIAL ONE (12:03)
[2017-05-24] MEDS ORDERED: MIDAZOLAM HCL 5 MG/5 ML VIAL IV ONE (13:00)
[2017-05-24] MEDS: DEXT 5%/0.9% NACL 1,000 ML IV SCH (17:55)
[2017-05-24 20:10] LABS: PLATELET ESTIMATE NORMAL
[2017-05-24] MEDS: ATORVASTATIN CALCIUM 10MG TABLET NG SCH (21:25)
[2017-05-25] VITALS (12 sets, daily range): BP systolic 103–130; BP diastolic 51–76
[2017-05-25] MEDS: ACETYLCYSTEINE 100MG/ML 10% VIAL 4ML INH SCH ×4 (00:15→12:50)
[2017-05-25] MEDS: IPRATROPIUM/ALBUTEROL 0.5-3(2.5)MG/3ML NEB HHN SCH ×7 (00:15→23:55)
[2017-05-25] MEDS: BLOOD SUGAR DIAGNOSTIC STRIP TEST SCH ×4 (05:06→23:27)
[2017-05-25] MEDS: SODIUM CHLORIDE 0.9% INJ 3ML FLUSH IVF SCH ×3 (05:06→21:54)
[2017-05-25] MEDS: METOCLOPRAMIDE HCL 10MG/2ML VIAL IV SCH ×4 (05:06→23:30)
[2017-05-25] MEDS: DEXT 5%/0.9% NACL 1,000 ML IV SCH (05:06)
[2017-05-25] MEDS: INSULIN LISPRO 100 UNITS/ML SUBCUT SCH ×4 (05:12→23:48)
[2017-05-25] MEDS: LEVOTHYROXINE SODIUM 50MCG TABLET PO SCH (07:40)
[2017-05-25] MEDS: MIDODRINE HCL 2.5MG TABLET PO SCH (09:00)
[2017-05-25] MEDS: MAGNESIUM OXIDE 400MG TABLET NG SCH (09:08)
[2017-05-25] MEDS: FAMOTIDINE 20MG/2ML VIAL IV SCH (09:08)
[2017-05-25 10:39] LABS: CARBON DIOXIDE 28 mEq/L (21-32); CHLORIDE 106 mEq/L (98-107)
[2017-05-25 10:40] LABS: PHOSPHORUS 3.4 mg/dL (2.5-4.9)
[2017-05-25 16:45] LABS: BASOPHILS % 1.2 % (0.0-2.0); EOSINOPHILS % 2.7 % (0.0-5.0); HEMATOCRIT. 27.9 % (42.0-52.0); HEMOGLOBIN. 9.4 g/dL (14.0-18.0); LYMPHOCYTES % 7.1 % (20.0-50.0); MEAN CORPUSCULAR HEMOGLOBIN 29.9 pg (28.0-32.0); MEAN CORPUSCULAR VOLUME 88.9 fL (80.0-94.0); MEAN PLATELET VOLUME 7.4 fl (7.4-10.4); PLATELET 539 x1000/uL (130-400); RED BLOOD CELL COUNT 3.14 mill/uL (4.7-6.1); RED CELL DISTRIBUTION WIDTH 15.2 % (11.6-14.6)
[2017-05-25] MEDS: ATORVASTATIN CALCIUM 10MG TABLET NG SCH (21:54)
[2017-05-26] VITALS (12 sets, daily range): BP systolic 86–123; BP diastolic 44–63
[2017-05-26] MEDS: ACETAMINOPHEN 650MG/20.3ML UDC GT PRN (01:49)
[2017-05-26] MEDS: IPRATROPIUM/ALBUTEROL 0.5-3(2.5)MG/3ML NEB HHN SCH ×5 (04:25→20:08)
[2017-05-26] MEDS: SODIUM CHLORIDE 0.9% INJ 3ML FLUSH IVF SCH ×3 (05:42→21:08)
[2017-05-26] MEDS: BLOOD SUGAR DIAGNOSTIC STRIP TEST SCH ×3 (05:43→17:32)
[2017-05-26] MEDS: METOCLOPRAMIDE HCL 10MG/2ML VIAL IV SCH ×3 (05:47→17:32)
[2017-05-26] MEDS: INSULIN LISPRO 100 UNITS/ML SUBCUT SCH ×3 (06:04→17:32)
[2017-05-26] MEDS: LEVOTHYROXINE SODIUM 50MCG TABLET PO SCH (06:05)
[2017-05-26 06:33] LABS: CARBON DIOXIDE 27 mEq/L (21-32); CHLORIDE 107 mEq/L (98-107); PHOSPHORUS 2.8 mg/dL (2.5-4.9)
[2017-05-26 06:40] LABS: BASOPHILS % 1.3 % (0.0-2.0); EOSINOPHILS % 2.4 % (0.0-5.0); HEMOGLOBIN. 8.9 g/dL (14.0-18.0); MEAN CORPUSCULAR HEMOGLOBIN 29.6 pg (28.0-32.0); MEAN CORPUSCULAR VOLUME 89.9 fL (80.0-94.0); MEAN PLATELET VOLUME 7.4 fl (7.4-10.4); NEUTROPHILS % 76.3 % (40.0-76.0); PLATELET 567 x1000/uL (130-400); RED CELL DISTRIBUTION WIDTH 15.1 % (11.6-14.6)
[2017-05-26] MEDS: FAMOTIDINE 20MG/2ML VIAL IV SCH ×2 (09:33→20:58)
[2017-05-26] MEDS: VANCOMYCIN 1 G PREMIX 200 ML IV SCH (09:33)
[2017-05-26] MEDS: MAGNESIUM OXIDE 400MG TABLET NG SCH (09:36)
[2017-05-26] MEDS ORDERED: INSULIN DETEMIR UD 100 UNITS/ML SYR SUBCUT SCH (12:00)
[2017-05-26] MEDS: MIDODRINE HCL 2.5MG TABLET PO SCH ×2 (12:56→17:32)
[2017-05-26] MEDS: ATORVASTATIN CALCIUM 10MG TABLET NG SCH (20:58)
[2017-05-26] MEDS ORDERED: SULFAMETHOXAZOLE/TRIMETHOPRIM 800/160MG TABLET PO SCH (21:00)
[2017-05-27] VITALS (11 sets, daily range): BP systolic 102–138; BP diastolic 53–82
[2017-05-27] MEDS: IPRATROPIUM/ALBUTEROL 0.5-3(2.5)MG/3ML NEB HHN SCH ×6 (00:11→20:32)
[2017-05-27] MEDS: METOCLOPRAMIDE HCL 10MG/2ML VIAL IV SCH ×4 (01:30→18:49)
[2017-05-27] MEDS: SODIUM CHLORIDE 0.9% INJ 3ML FLUSH IVF SCH ×3 (05:36→21:25)
[2017-05-27] MEDS: BLOOD SUGAR DIAGNOSTIC STRIP TEST SCH ×4 (05:37→17:03)
[2017-05-27] MEDS: INSULIN LISPRO 100 UNITS/ML SUBCUT SCH ×4 (06:00→18:00)
[2017-05-27] MEDS: LEVOTHYROXINE SODIUM 50MCG TABLET PO SCH (06:03)
[2017-05-27 06:58] LABS: BASOPHILS % 2.2 % (0.0-2.0); HEMATOCRIT. 26.1 % (42.0-52.0); HEMOGLOBIN. 8.6 g/dL (14.0-18.0); LYMPHOCYTES % 12.7 % (20.0-50.0); MEAN CORPUSCULAR HEMOGLOBIN 29.8 pg (28.0-32.0); MEAN CORPUSCULAR VOLUME 90.1 fL (80.0-94.0); NEUTROPHILS % 73.1 % (40.0-76.0); PLATELET 656 x1000/uL (130-400); RED BLOOD CELL COUNT 2.89 mill/uL (4.7-6.1)
[2017-05-27 07:24] LABS: PHOSPHORUS 2.8 mg/dL (2.5-4.9)
[2017-05-27] MEDS: MAGNESIUM OXIDE 400MG TABLET NG SCH (09:55)
[2017-05-27] MEDS: MIDODRINE HCL 2.5MG TABLET PO SCH ×3 (09:55→18:49)
[2017-05-27] MEDS: FAMOTIDINE 20MG/2ML VIAL IV SCH ×2 (09:55→21:25)
[2017-05-27] MEDS: INSULIN DETEMIR UD 100 UNITS/ML SYR SUBCUT SCH (10:31)
[2017-05-27] MEDS: ATORVASTATIN CALCIUM 10MG TABLET NG SCH (21:25)
[2017-05-27] MEDS: ACETAMINOPHEN 650MG/20.3ML UDC GT PRN (21:25)
[2017-05-28] VITALS (12 sets, daily range): BP systolic 98–128; BP diastolic 42–71
[2017-05-28] MEDS: IPRATROPIUM/ALBUTEROL 0.5-3(2.5)MG/3ML NEB HHN SCH ×6 (00:21→20:35)
[2017-05-28] MEDS: BLOOD SUGAR DIAGNOSTIC STRIP TEST SCH ×4 (00:35→17:03)
[2017-05-28] MEDS: METOCLOPRAMIDE HCL 10MG/2ML VIAL IV SCH ×4 (00:35→17:03)
[2017-05-28] MEDS: INSULIN LISPRO 100 UNITS/ML SUBCUT SCH ×4 (06:00→17:03)
[2017-05-28] MEDS: SODIUM CHLORIDE 0.9% INJ 3ML FLUSH IVF SCH ×3 (06:43→21:44)
[2017-05-28] MEDS: LEVOTHYROXINE SODIUM 50MCG TABLET PO SCH (08:44)
[2017-05-28] MEDS: MAGNESIUM OXIDE 400MG TABLET NG SCH (08:44)
[2017-05-28] MEDS: MIDODRINE HCL 2.5MG TABLET PO SCH ×3 (08:45→16:59)
[2017-05-28] MEDS: VANCOMYCIN 1 G PREMIX 200 ML IV SCH (08:45)
[2017-05-28] MEDS: FAMOTIDINE 20MG/2ML VIAL IV SCH ×2 (08:45→21:44)
[2017-05-28] MEDS: INSULIN DETEMIR UD 100 UNITS/ML SYR SUBCUT SCH (09:55)
[2017-05-28] MEDS: ATORVASTATIN CALCIUM 10MG TABLET NG SCH (21:43)
[2017-05-29] VITALS (13 sets, daily range): BP systolic 96–126; BP diastolic 47–70
[2017-05-29] MEDS: IPRATROPIUM/ALBUTEROL 0.5-3(2.5)MG/3ML NEB HHN SCH ×6 (00:27→20:59)
[2017-05-29] MEDS: METOCLOPRAMIDE HCL 10MG/2ML VIAL IV SCH ×4 (02:34→18:00)
[2017-05-29] MEDS: INSULIN LISPRO 100 UNITS/ML SUBCUT SCH ×4 (06:00→18:00)
[2017-05-29] MEDS: BLOOD SUGAR DIAGNOSTIC STRIP TEST SCH ×4 (06:46→18:00)
[2017-05-29] MEDS: SODIUM CHLORIDE 0.9% INJ 3ML FLUSH IVF SCH ×2 (06:46→14:00)
[2017-05-29 07:51] LABS: BASOPHILS % 3.7 % (0.0-2.0); EOSINOPHILS % 4.4 % (0.0-5.0); HEMATOCRIT. 27.3 % (42.0-52.0); HEMOGLOBIN. 9.2 g/dL (14.0-18.0); LYMPHOCYTES % 14.9 % (20.0-50.0); MEAN CORPUSCULAR HEMOGLOBIN 30.3 pg (28.0-32.0); MEAN CORPUSCULAR VOLUME 90.1 fL (80.0-94.0); MEAN PLATELET VOLUME 7.1 fl (7.4-10.4); MONOCYTES % 13.7 % (2.0-8.0); NEUTROPHILS % 63.3 % (40.0-76.0); PLATELET 788 x1000/uL (130-400); RED BLOOD CELL COUNT 3.03 mill/uL (4.7-6.1); RED CELL DISTRIBUTION WIDTH 14.7 % (11.6-14.6)
[2017-05-29 08:15] LABS: CARBON DIOXIDE 25 mEq/L (21-32); CHLORIDE 102 mEq/L (98-107)
[2017-05-29] MEDS: MAGNESIUM OXIDE 400MG TABLET NG SCH (09:06)
[2017-05-29] MEDS: MIDODRINE HCL 2.5MG TABLET PO SCH ×3 (09:06→18:01)
[2017-05-29] MEDS: LEVOTHYROXINE SODIUM 50MCG TABLET PO SCH (09:07)
[2017-05-29] MEDS: FAMOTIDINE 20MG/2ML VIAL IV SCH (09:07)
[2017-05-29] MEDS: INSULIN DETEMIR UD 100 UNITS/ML SYR SUBCUT SCH (11:22)
[2017-05-29] MEDS: ATORVASTATIN CALCIUM 10MG TABLET NG SCH (20:02)
[2017-05-29] MEDS: ACETAMINOPHEN 650MG/20.3ML UDC GT PRN (20:04)
[2017-05-30] VITALS (12 sets, daily range): BP systolic 102–129; BP diastolic 49–70
[2017-05-30] MEDS: IPRATROPIUM/ALBUTEROL 0.5-3(2.5)MG/3ML NEB HHN SCH ×6 (00:43→20:31)
[2017-05-30] MEDS: METOCLOPRAMIDE HCL 10MG/2ML VIAL IV SCH ×5 (00:57→23:18)
[2017-05-30] MEDS: ACETAMINOPHEN 650MG/20.3ML UDC GT PRN (00:57)
[2017-05-30] MEDS: SODIUM CHLORIDE 0.9% INJ 3ML FLUSH IVF SCH ×4 (00:58→21:54)
[2017-05-30] MEDS: BLOOD SUGAR DIAGNOSTIC STRIP TEST SCH ×5 (00:58→23:19)
[2017-05-30] MEDS: INSULIN LISPRO 100 UNITS/ML SUBCUT SCH ×5 (00:59→23:30)
[2017-05-30 07:16] LABS: PHOSPHORUS 2.9 mg/dL (2.5-4.9)
[2017-05-30 07:24] LABS: HEMOGLOBIN. 8.9 g/dL (14.0-18.0); MEAN CORPUSCULAR HEMOGLOBIN 29.8 pg (28.0-32.0); MEAN CORPUSCULAR VOLUME 90.4 fL (80.0-94.0); MEAN PLATELET VOLUME 7.2 fl (7.4-10.4); PLATELET 835 x1000/uL (130-400); RED BLOOD CELL COUNT 2.99 mill/uL (4.7-6.1); RED CELL DISTRIBUTION WIDTH 14.6 % (11.6-14.6)
[2017-05-30] MEDS: LEVOTHYROXINE SODIUM 50MCG TABLET PO SCH (09:08)
[2017-05-30] MEDS: MIDODRINE HCL 2.5MG TABLET PO SCH ×3 (09:08→17:24)
[2017-05-30] MEDS: FAMOTIDINE 20MG/2ML VIAL IV SCH (09:08)
[2017-05-30] MEDS: VANCOMYCIN 1 G PREMIX 200 ML IV SCH (09:08)
[2017-05-30] MEDS: MAGNESIUM OXIDE 400MG TABLET NG SCH (09:08)
[2017-05-30] MEDS: INSULIN DETEMIR UD 100 UNITS/ML SYR SUBCUT SCH (11:55)
[2017-05-30] MEDS: ENOXAPARIN 40MG/0.4ML SYR SUBCUT SCH (14:20)
[2017-05-30 16:35] LABS: PLATELET ESTIMATE MARKEDLY INCREASED
[2017-05-30] MEDS: ATORVASTATIN CALCIUM 10MG TABLET NG SCH (21:53)
[2017-05-31] VITALS (12 sets, daily range): BP systolic 98–125; BP diastolic 49–67
[2017-05-31] MEDS: ACETAMINOPHEN 650MG/20.3ML UDC GT PRN (00:06)
[2017-05-31] MEDS: IPRATROPIUM/ALBUTEROL 0.5-3(2.5)MG/3ML NEB HHN SCH ×5 (00:17→16:34)
[2017-05-31] MEDS: SODIUM CHLORIDE 0.9% INJ 3ML FLUSH IVF SCH ×2 (05:39→13:04)
[2017-05-31] MEDS: METOCLOPRAMIDE HCL 10MG/2ML VIAL IV SCH ×3 (05:41→17:07)
[2017-05-31] MEDS: BLOOD SUGAR DIAGNOSTIC STRIP TEST SCH ×3 (05:43→17:08)
[2017-05-31] MEDS: INSULIN LISPRO 100 UNITS/ML SUBCUT SCH ×3 (06:48→17:15)
[2017-05-31] MEDS: LEVOTHYROXINE SODIUM 50MCG TABLET PO SCH (06:49)
[2017-05-31 07:43] LABS: HEMATOCRIT. 27.2 % (42.0-52.0); MEAN CORPUSCULAR VOLUME 90.6 fL (80.0-94.0); MEAN PLATELET VOLUME 7.2 fl (7.4-10.4); PLATELET 885 x1000/uL (130-400); RED BLOOD CELL COUNT 3.01 mill/uL (4.7-6.1); RED CELL DISTRIBUTION WIDTH 14.6 % (11.6-14.6)
[2017-05-31 07:59] LABS: PHOSPHORUS 2.7 mg/dL (2.5-4.9)
[2017-05-31] MEDS: MIDODRINE HCL 2.5MG TABLET PO SCH ×3 (08:21→17:08)
[2017-05-31] MEDS: FAMOTIDINE 20MG/2ML VIAL IV SCH (08:21)
[2017-05-31] MEDS: MAGNESIUM OXIDE 400MG TABLET NG SCH (08:22)
[2017-05-31] MEDS: INSULIN DETEMIR UD 100 UNITS/ML SYR SUBCUT SCH (11:09)
[2017-05-31] MEDS: ENOXAPARIN 40MG/0.4ML SYR SUBCUT SCH (13:04)
[2017-05-31 14:18] LABS: ATYPICAL LYMPHOCYTES 1; PLATELET ESTIMATE INCREASED
[2017-05-31] MEDS: ATORVASTATIN CALCIUM 10MG TABLET NG SCH (21:02)
[2017-06-01] MEDS ORDERED: INSULIN DETEMIR UD 100 UNITS/ML SYR SUBCUT SCH (10:00)
== END 2017-05-31 21:23 | DRG 870 ==
LOC: ER 12:54 → CVICU 13:50 → EDBEDREQTM 13:55 → EDBEDREQ 13:55 → ENRESERV 14:16 → 5EST 05-22 14:10
PROVIDERS: ADMIT Family Medicine; ATTEND Family Medicine
PROC: 5A1955Z Respiratory Ventilation, Greater than 96 Consecutive Hours (ICD-10-PCS; principal; 2017-05-14)
PROC: 0BH17EZ Insertion of Endotracheal Airway into Trachea, Via Natural or Artificial Opening (ICD-10-PCS; 2017-05-14)
PROC: 5A12012 Performance of Cardiac Output, Single, Manual (ICD-10-PCS; 2017-05-14)
PROC: 02HV33Z Insertion of Infusion Device into Superior Vena Cava, Percutaneous Approach (ICD-10-PCS; 2017-05-14)
PROC: B548ZZA Ultrasonography of Superior Vena Cava, Guidance (ICD-10-PCS; 2017-05-14)
PROC: 30233N1 Transfusion of Nonautologous Red Blood Cells into Peripheral Vein, Percutaneous Approach (ICD-10-PCS; 2017-05-24)
PROC: 0DH68UZ Insertion of Feeding Device into Stomach, Via Natural or Artificial Opening Endoscopic (ICD-10-PCS; 2017-05-30)
DX: A41.9 Sepsis, unspecified organism (principal); I46.9 Cardiac arrest, cause unspecified; N17.0 Acute kidney failure with tubular necrosis; J96.01 Acute respiratory failure with hypoxia; R65.21 Severe sepsis with septic shock; G93.41 Metabolic encephalopathy; J69.0 Pneumonitis due to inhalation of food and vomit; E43 Unspecified severe protein-calorie malnutrition; R13.12 Dysphagia, oropharyngeal phase; B37.49 Other urogenital candidiasis; I13.0 Hypertensive heart and chronic kidney disease with heart failure and stage 1 through stage 4 chronic kidney disease, or unspecified chronic kidney disease; M86.8X7 Other osteomyelitis, ankle and foot; E87.5 Hyperkalemia; D64.9 Anemia, unspecified; E11.22 Type 2 diabetes mellitus with diabetic chronic kidney disease; E11.319 Type 2 diabetes mellitus with unspecified diabetic retinopathy without macular edema; H54.0 Blindness, both eyes; I44.7 Left bundle-branch block, unspecified; I44.0 Atrioventricular block, first degree; B96.20 Unspecified Escherichia coli [E. coli] as the cause of diseases classified elsewhere; E03.9 Hypothyroidism, unspecified; E11.51 Type 2 diabetes mellitus with diabetic peripheral angiopathy without gangrene; E11.65 Type 2 diabetes mellitus with hyperglycemia; E11.69 Type 2 diabetes mellitus with other specified complication; E83.42 Hypomagnesemia; F03.90 Unspecified dementia, unspecified severity, without behavioral disturbance, psychotic disturbance, mood disturbance, and anxiety; I25.10 Atherosclerotic heart disease of native coronary artery without angina pectoris; I50.9 Heart failure, unspecified; J44.9 Chronic obstructive pulmonary disease, unspecified; K29.70 Gastritis, unspecified, without bleeding; M10.9 Gout, unspecified; N18.3 Chronic kidney disease, stage 3 (moderate); I65.22 Occlusion and stenosis of left carotid artery; T68.XXXA Hypothermia, initial encounter; N40.0 Benign prostatic hyperplasia without lower urinary tract symptoms; Z16.12 Extended spectrum beta lactamase (ESBL) resistance; Z74.01 Bed confinement status; Z86.73 Personal history of transient ischemic attack (TIA), and cerebral infarction without residual deficits; I25.2 Old myocardial infarction; Z87.891 Personal history of nicotine dependence; Z88.0 Allergy status to penicillin; Z79.2 Long term (current) use of antibiotics; Z79.84 Long term (current) use of oral hypoglycemic drugs; Z79.899 Other long term (current) drug therapy; Z68.28 Body mass index [BMI] 28.0-28.9, adult
CPT/HCPCS: 31500; 31525; 36415; 36569; 36600; 70450; 71010; 73620; 76770; 76937; 80048; 80053; 80061; 80202; 81001; 82375; 82550; 82805; 82962; 83605; 83690; 83735; 83880; 84100; 84443; 84484; 85025; 85027; 85610; 85730; 86850; 86900; 86920; 87040; 87070; 87077; 87086; 87106; 87186; 92610; 92950; 93005; 93306; 94003; 94640; 94667; 96374; 96375; 96376; 97161; 99291; A4216; A6261; C1725; C9113; J0171; J0461; J1265; J1650; J1815; J1956; J2185; J2250; J2370; J2765; J3370; J3475; J3490; J7030; J7040; J7042; J7050; J7060; J7608; J7620; P9016; A4315

== ENCOUNTER 2017-06-28 18:08 | Inpatient (IN) | payer MEDICARE, OTHER ==
[~2017-06-28] VITALS: Ht 172.7 cm; Wt 86.2 kg
[~2017-06-28 18:08] MED LIST changes: -DONE10TA11 PO; -ETOMIDATE 2MG/ML 10ML VIAL IV ONE; -LEVO500T2 PO; -METF500T4 PO; -PRAN1 PO; -STERILE WATER FOR INJECTION 10ML VIAL ONE; -VECURONIUM BROMIDE 10 MG/VIAL IV ONE
[2017-06-28] MEDS ORDERED: LEVOFLOXACIN 750MG PREMIX 150 ML IV NR (20:00)
[2017-06-28 20:20] LABS: BG BASE EXCESS 2.9 mmol/L (-2.0-2.0); BG CARBOXYHEMOGLOBIN 0.5 % (0.5-1.5); BG DEOXYHEMOGLOBIN 3.7 % (0.0-5.0); BG FRACTION INSPIRED OXYGEN 21; BG HCO3 ACT 26.8 mmol/L (22.0-26.0); BG OXYGEN SATURATION 96.3 % (92.0-98.5); BG OXYHEMOGLOBIN 95.8 % (94.0-97.0); BG PCO2 38.3 mmHg (35.0-45.0); BG PH 7.463 (7.350-7.450); BG PO2 85.7 mmHg (75.0-100.0); BG SAMPLE SITE RIGHT RADIAL; BG TOTAL HEMOGLOBIN 10.7 g/dL (12.0-18.0); BG VENT MODE ROOM AIR
[2017-06-28 20:27] LABS: BASOPHILS % 0.7 % (0.0-2.0); EOSINOPHILS % 2.8 % (0.0-5.0); HEMATOCRIT. 30.3 % (42.0-52.0); HEMOGLOBIN. 9.9 g/dL (14.0-18.0); MEAN CORPUSCULAR HEMOGLOBIN 30.1 pg (28.0-32.0); MEAN CORPUSCULAR VOLUME 91.6 fL (80.0-94.0); MEAN PLATELET VOLUME 8.2 fl (7.4-10.4); NEUTROPHILS % 70.5 % (40.0-76.0); PLATELET 301 x1000/uL (130-400); RED BLOOD CELL COUNT 3.31 mill/uL (4.7-6.1)
[2017-06-28 20:36] LABS: INR 1.2; PROTHROMBIN TIME 12.2 sec (9.4-11.6)
[2017-06-28 20:42] LABS: CARBON DIOXIDE 31 mEq/L (21-32); CHLORIDE 101 mEq/L (98-107)
[2017-06-28 20:45] LABS: TROPONIN I < 0.02 ng/mL (0.00-0.04)
[2017-06-29] VITALS (8 sets, daily range): BP systolic 100–126; BP diastolic 55–59
[2017-06-29] MEDS ORDERED: MORPHINE SULFATE 2 MG/ML CPJ (NOT FOR IM USE) IV PRN ×2 (11:30→12:45)
[2017-06-29] MEDS ORDERED: LORAZEPAM 2MG/ML CPJ IV PRN ×2 (11:30→12:45)
[2017-06-29] MEDS ORDERED: CLONIDINE 0.1MG TABLET PO PRN (11:30)
[2017-06-29] MEDS ORDERED: SODIUM CHLORIDE 0.9% 1,000 ML IV SCH (11:30)
[2017-06-29] MEDS ORDERED: ONDANSETRON HCL 4MG/2ML VIAL IV PRN (11:30)
[2017-06-29] MEDS ORDERED: ENOXAPARIN 40MG/0.4ML SYR SUBCUT SCH (12:45)
[2017-06-29] MEDS ORDERED: HYDROCODONE/ACETAMINOPHEN 5/325MG TABLET PO PRN (12:45)
[2017-06-29] MEDS ORDERED: VANCOMYCIN 1500MG in DEXTROSE 5% WATER 250ML IV SCH (15:00)
[2017-06-29 17:07] LABS: CARBON DIOXIDE 27 mEq/L (21-32); CHLORIDE 101 mEq/L (98-107); CREATINE KINASE 157 IU/L (39-308); CREATINE KINASE MB FRACTION 1.2 ng/mL (0.5-3.6); TROPONIN I < 0.02 ng/mL (0.00-0.04)
[2017-06-29] MEDS: ENOXAPARIN 30MG/0.3ML SYR SUBCUT SCH (18:22)
[2017-06-29] MEDS: SODIUM CHLORIDE 0.9% 1,000 ML IV SCH (18:23)
[2017-06-29] MEDS: LEVOFLOXACIN 250MG PREMIX 50 ML IV SCH (20:50)
[2017-06-29] MEDS ORDERED: DEXTROSE 50% WATER 50ML SYRINGE IV PRN (21:15)
[2017-06-29] MEDS: BLOOD SUGAR DIAGNOSTIC STRIP TEST SCH (21:56)
[2017-06-29] MEDS: INSULIN LISPRO 100 UNITS/ML SUBCUT SCH (22:02)
[2017-06-30] VITALS (8 sets, daily range): BP systolic 100–124; BP diastolic 50–66
[2017-06-30 01:34] LABS: CREATINE KINASE 231 IU/L (39-308); CREATINE KINASE MB FRACTION 0.8 ng/mL (0.5-3.6); TROPONIN I < 0.02 ng/mL (0.00-0.04)
[2017-06-30] MEDS: LEVOTHYROXINE SODIUM 75MCG TABLET PO SCH ×2 (05:48→12:03)
[2017-06-30 06:49] LABS: HEMATOCRIT. 28.5 % (42.0-52.0); HEMOGLOBIN. 9.6 g/dL (14.0-18.0); MEAN CORPUSCULAR HEMOGLOBIN 30.9 pg (28.0-32.0); MEAN CORPUSCULAR VOLUME 91.3 fL (80.0-94.0); MEAN PLATELET VOLUME 9.2 fl (7.4-10.4); RED BLOOD CELL COUNT 3.12 mill/uL (4.7-6.1); RED CELL DISTRIBUTION WIDTH 16.2 % (11.6-14.6)
[2017-06-30] MEDS: BLOOD SUGAR DIAGNOSTIC STRIP TEST SCH ×4 (07:20→21:00)
[2017-06-30] MEDS ORDERED: BLOOD SUGAR DIAGNOSTIC STRIP TEST SCH (07:20)
[2017-06-30] MEDS ORDERED: INSULIN LISPRO 100 UNITS/ML SUBCUT SCH (07:50)
[2017-06-30 08:02] LABS: PHOSPHORUS 3.3 mg/dL (2.5-4.9)
[2017-06-30] MEDS: IPRATROPIUM/ALBUTEROL 0.5-3(2.5)MG/3ML NEB HHN SCH ×3 (08:51→20:33)
[2017-06-30] MEDS ORDERED: THIAMINE HCL 100MG TABLET PO SCH (09:00)
[2017-06-30] MEDS: SODIUM CHLORIDE 0.9% 1,000 ML IV SCH ×2 (09:36→15:33)
[2017-06-30] MEDS: INSULIN LISPRO 100 UNITS/ML SUBCUT SCH ×4 (09:37→22:29)
[2017-06-30] MEDS ORDERED: DIATR MEGLU/DIATRIZOATE SOLN 120ML ONE (09:45)
[2017-06-30] MEDS: ALLOPURINOL 100 MG TABLET PO SCH (12:02)
[2017-06-30] MEDS: FOLIC ACID 1MG TABLET PO SCH (12:02)
[2017-06-30] MEDS: THIAMINE HCL 100MG TABLET PO SCH (12:03)
[2017-06-30] MEDS: LISINOPRIL 20MG TABLET PO SCH (12:03)
[2017-06-30] MEDS: CLOPIDOGREL 75MG TABLET PO SCH (12:03)
[2017-06-30] MEDS: ATENOLOL 25MG TABLET PO SCH (12:03)
[2017-06-30] MEDS: ENOXAPARIN 30MG/0.3ML SYR SUBCUT SCH (12:08)
[2017-06-30] MEDS: TERAZOSIN HCL 5MG CAPSULE PO SCH (15:33)
[2017-06-30] MEDS: VANCOMYCIN 1 G PREMIX 200 ML IV SCH (17:31)
[2017-06-30] MEDS: LEVOFLOXACIN 250MG PREMIX 50 ML IV SCH (20:13)
[2017-07-01] VITALS: BP 94/50
[2017-07-01] MEDS: IPRATROPIUM/ALBUTEROL 0.5-3(2.5)MG/3ML NEB HHN SCH ×4 (01:02→21:23)
[2017-07-01 04:00] VITALS: BP 118/50
[2017-07-01] MEDS: BLOOD SUGAR DIAGNOSTIC STRIP TEST SCH ×4 (07:20→21:00)
[2017-07-01 07:41] VITALS: BP 161/134
[2017-07-01 07:55] LABS: CARBON DIOXIDE 30 mEq/L (21-32); CHLORIDE 107 mEq/L (98-107)
[2017-07-01] MEDS: INSULIN LISPRO 100 UNITS/ML SUBCUT SCH ×4 (08:10→21:53)
[2017-07-01] MEDS: FOLIC ACID 1MG TABLET PO SCH (08:17)
[2017-07-01] MEDS: TERAZOSIN HCL 5MG CAPSULE PO SCH (08:17)
[2017-07-01] MEDS: CLOPIDOGREL 75MG TABLET PO SCH (08:17)
[2017-07-01] MEDS: ALLOPURINOL 100 MG TABLET PO SCH (08:17)
[2017-07-01] MEDS: LISINOPRIL 20MG TABLET PO SCH (08:18)
[2017-07-01] MEDS: ATENOLOL 25MG TABLET PO SCH (08:18)
[2017-07-01] MEDS: THIAMINE HCL 100MG TABLET PO SCH (08:18)
[2017-07-01] MEDS: ENOXAPARIN 40MG/0.4ML SYR SUBCUT SCH (08:19)
[2017-07-01] MEDS: LEVOTHYROXINE SODIUM 75MCG TABLET PO SCH (08:20)
[2017-07-01] MEDS: SODIUM CHLORIDE 0.9% 1,000 ML IV SCH ×3 (11:15→21:15)
[2017-07-01 12:00] VITALS: BP 93/87
[2017-07-01 16:00] VITALS: BP 101/47
[2017-07-01] MEDS: VANCOMYCIN 1 G PREMIX 200 ML IV SCH (18:03)
[2017-07-01 19:44] VITALS: BP 103/42
[2017-07-01] MEDS: LEVOFLOXACIN 250MG PREMIX 50 ML IV SCH ×2 (20:00→21:45)
[2017-07-02] MEDS: IPRATROPIUM/ALBUTEROL 0.5-3(2.5)MG/3ML NEB HHN SCH ×4 (01:53→20:50)
[2017-07-02 05:04] VITALS: BP 96/41
[2017-07-02] MEDS: BLOOD SUGAR DIAGNOSTIC STRIP TEST SCH ×4 (06:30→21:48)
[2017-07-02] MEDS: LEVOTHYROXINE SODIUM 75MCG TABLET PO SCH (07:30)
[2017-07-02 07:52] VITALS: BP 114/51
[2017-07-02] MEDS: ATENOLOL 25MG TABLET PO SCH (09:00)
[2017-07-02] MEDS: LISINOPRIL 20MG TABLET PO SCH (09:00)
[2017-07-02] MEDS: TERAZOSIN HCL 5MG CAPSULE PO SCH (09:00)
[2017-07-02] MEDS: CLOPIDOGREL 75MG TABLET PO SCH (09:32)
[2017-07-02] MEDS: ENOXAPARIN 40MG/0.4ML SYR SUBCUT SCH (09:32)
[2017-07-02] MEDS: ALLOPURINOL 100 MG TABLET PO SCH (09:32)
[2017-07-02] MEDS: FOLIC ACID 1MG TABLET PO SCH (09:32)
[2017-07-02] MEDS: THIAMINE HCL 100MG TABLET PO SCH (09:35)
[2017-07-02] MEDS: INSULIN LISPRO 100 UNITS/ML SUBCUT SCH ×4 (09:37→21:46)
[2017-07-02] MEDS: SODIUM CHLORIDE 0.9% 1,000 ML IV SCH ×2 (09:40→17:15)
[2017-07-02 12:12] VITALS: BP 103/53
[2017-07-02 16:15] VITALS: BP 110/56
[2017-07-02 19:18] VITALS: BP 105/50
[2017-07-02 23:34] VITALS: BP 104/49
[2017-07-03] MEDS: IPRATROPIUM/ALBUTEROL 0.5-3(2.5)MG/3ML NEB HHN SCH ×4 (02:30→20:15)
[2017-07-03 04:50] VITALS: BP 107/51
[2017-07-03 06:19] LABS: BASOPHILS % 0.7 % (0.0-2.0); EOSINOPHILS % 6.3 % (0.0-5.0); HEMATOCRIT. 25.4 % (42.0-52.0); HEMOGLOBIN. 8.3 g/dL (14.0-18.0); LYMPHOCYTES % 15.4 % (20.0-50.0); MEAN CORPUSCULAR HEMOGLOBIN 30.3 pg (28.0-32.0); MEAN PLATELET VOLUME 8.4 fl (7.4-10.4); MONOCYTES % 12.8 % (2.0-8.0); NEUTROPHILS % 64.8 % (40.0-76.0); PLATELET 276 x1000/uL (130-400); RED BLOOD CELL COUNT 2.73 mill/uL (4.7-6.1); RED CELL DISTRIBUTION WIDTH 16.3 % (11.6-14.6)
[2017-07-03 06:27] LABS: CARBON DIOXIDE 28 mEq/L (21-32); CHLORIDE 113 mEq/L (98-107)
[2017-07-03] MEDS: BLOOD SUGAR DIAGNOSTIC STRIP TEST SCH ×3 (06:52→18:05)
[2017-07-03] MEDS: SODIUM CHLORIDE 0.9% 1,000 ML IV SCH (07:01)
[2017-07-03] MEDS: LEVOTHYROXINE SODIUM 75MCG TABLET PO SCH ×2 (07:07→09:53)
[2017-07-03] MEDS: LEVOFLOXACIN 250MG PREMIX 50 ML IV SCH (07:15)
[2017-07-03 07:57] VITALS: BP 161/38
[2017-07-03] MEDS ORDERED: VANCOMYCIN 750 MG PREMIX 150 ML IV SCH (09:00)
[2017-07-03] MEDS: LISINOPRIL 20MG TABLET PO SCH (09:53)
[2017-07-03] MEDS: CLOPIDOGREL 75MG TABLET PO SCH (09:54)
[2017-07-03] MEDS: TERAZOSIN HCL 5MG CAPSULE PO SCH (09:54)
[2017-07-03] MEDS: ATENOLOL 25MG TABLET PO SCH (09:54)
[2017-07-03] MEDS: FOLIC ACID 1MG TABLET PO SCH (09:54)
[2017-07-03] MEDS: THIAMINE HCL 100MG TABLET PO SCH (09:54)
[2017-07-03] MEDS: ALLOPURINOL 100 MG TABLET PO SCH (09:54)
[2017-07-03] MEDS: ENOXAPARIN 40MG/0.4ML SYR SUBCUT SCH (09:57)
[2017-07-03] MEDS: INSULIN LISPRO 100 UNITS/ML SUBCUT SCH ×3 (09:58→18:19)
[2017-07-03 11:26] VITALS: BP 95/40
[2017-07-03 11:27] VITALS: BP 95/40
[2017-07-03 15:44] VITALS: BP 97/43
[2017-07-03 18:46] VITALS: BP 97/43
[2017-07-04] MEDS ORDERED: LEVOFLOXACIN 250MG TABLET PO SCH (11:00)
== END 2017-07-03 20:58 | DRG 871 ==
LOC: ER 18:08 → 6WST 06-29 01:56 → EDBEDREQSVC 06-29 02:09 → EDBEDREQ 06-29 02:09 → ENRESERV 06-29 06:00
PROVIDERS: ADMIT Hospitalist; ATTEND Hospitalist
DX: A41.9 Sepsis, unspecified organism (principal); J18.9 Pneumonia, unspecified organism; E43 Unspecified severe protein-calorie malnutrition; G93.40 Encephalopathy, unspecified; N17.9 Acute kidney failure, unspecified; E11.9 Type 2 diabetes mellitus without complications; J44.0 Chronic obstructive pulmonary disease with (acute) lower respiratory infection; Z86.74 Personal history of sudden cardiac arrest; F03.90 Unspecified dementia, unspecified severity, without behavioral disturbance, psychotic disturbance, mood disturbance, and anxiety; E03.9 Hypothyroidism, unspecified; I10 Essential (primary) hypertension; I25.10 Atherosclerotic heart disease of native coronary artery without angina pectoris; H54.8 Legal blindness, as defined in USA; Z86.73 Personal history of transient ischemic attack (TIA), and cerebral infarction without residual deficits; Z88.0 Allergy status to penicillin; Z79.899 Other long term (current) drug therapy
CPT/HCPCS: 36415; 36600; 70450; 71010; 71250; 74000; 80048; 80053; 80202; 82375; 82550; 82553; 82805; 82962; 83605; 83735; 83880; 84100; 84443; 84484; 85025; 85610; 87040; 87804; 93005; 93970; 94640; 96365; 99291; A6261; J1650; J1815; J1956; J3370; J7030; J7060; J7620; Q9963; A4315

== ENCOUNTER 2017-07-05 12:37 | Inpatient (IN) | payer MEDICARE, OTHER ==
[~2017-07-05] VITALS: Ht 172.7 cm; Wt 84.4 kg
[2017-07-05 13:28] LABS: BASOPHILS % 0.5 % (0.0-2.0); EOSINOPHILS % 3.4 % (0.0-5.0); HEMATOCRIT. 25.6 % (42.0-52.0); HEMOGLOBIN. 8.5 g/dL (14.0-18.0); LYMPHOCYTES % 12.9 % (20.0-50.0); MEAN CORPUSCULAR HEMOGLOBIN 30.8 pg (28.0-32.0); MEAN CORPUSCULAR VOLUME 92.7 fL (80.0-94.0); MEAN PLATELET VOLUME 7.2 fl (7.4-10.4); MONOCYTES % 12.7 % (2.0-8.0); NEUTROPHILS % 70.5 % (40.0-76.0); PLATELET 305 x1000/uL (130-400); RED BLOOD CELL COUNT 2.76 mill/uL (4.7-6.1); RED CELL DISTRIBUTION WIDTH 16.4 % (11.6-14.6)
[2017-07-05 13:36] LABS: INR 1.2
[2017-07-05 13:45] LABS: CARBON DIOXIDE 30 mEq/L (21-32); CHLORIDE 112 mEq/L (98-107); TROPONIN I < 0.02 ng/mL (0.00-0.04)
[2017-07-05 15:25] LABS: BG BASE EXCESS 5.3 mmol/L (-2.0-2.0); BG CARBOXYHEMOGLOBIN 1.3 % (0.5-1.5); BG DEOXYHEMOGLOBIN 5.8 % (0.0-5.0); BG FRACTION INSPIRED OXYGEN 21; BG HCO3 ACT 29.3 mmol/L (22.0-26.0); BG OXYGEN SATURATION 94.1 % (92.0-98.5); BG OXYHEMOGLOBIN 92.9 % (94.0-97.0); BG PCO2 40.2 mmHg (35.0-45.0); BG PO2 68.6 mmHg (75.0-100.0); BG SAMPLE SITE RIGHT RADIAL; BG TOTAL HEMOGLOBIN 8.4 g/dL (12.0-18.0); BG VENT MODE ROOM AIR
[2017-07-05] MEDS ORDERED: IPRATROPIUM/ALBUTEROL 0.5-3(2.5)MG/3ML NEB HHN PRN (16:30)
[2017-07-05] MEDS ORDERED: ONDANSETRON HCL 4MG/2ML VIAL IV PRN (17:30)
[2017-07-05 19:35] VITALS: BP 99/45
[2017-07-05] MEDS ORDERED: DEXTROSE 50% WATER 50ML SYRINGE IV PRN (19:45)
[2017-07-05 20:00] VITALS: BP 99/45
[2017-07-05] MEDS: DEXT 5%/0.45% NACL 1000ML 1,000 ML IV SCH (20:44)
[2017-07-05] MEDS: ENOXAPARIN 40MG/0.4ML SYR SUBCUT SCH (20:45)
[2017-07-05] MEDS ORDERED: LEVOFLOXACIN 500MG PREMIX 100 ML IV NR (21:00)
[2017-07-05] MEDS: BLOOD SUGAR DIAGNOSTIC STRIP TEST SCH (21:26)
[2017-07-05] MEDS: INSULIN LISPRO 100 UNITS/ML SUBCUT SCH (21:27)
[2017-07-05] MEDS ORDERED: VANCOMYCIN 1,750 MG in DEXT 5% WATER 250 ML IV NR (22:00)
[2017-07-06] VITALS: BP 108/42
[2017-07-06] MEDS: IPRATROPIUM/ALBUTEROL 0.5-3(2.5)MG/3ML NEB HHN SCH ×4 (01:59→20:53)
[2017-07-06 04:00] VITALS: BP 116/51
[2017-07-06 06:53] LABS: BASOPHILS % 0.5 % (0.0-2.0); EOSINOPHILS % 4.5 % (0.0-5.0); HEMATOCRIT. 24.7 % (42.0-52.0); LYMPHOCYTES % 13.9 % (20.0-50.0); MEAN CORPUSCULAR HEMOGLOBIN 30.1 pg (28.0-32.0); MEAN CORPUSCULAR VOLUME 92.7 fL (80.0-94.0); MEAN PLATELET VOLUME 7.9 fl (7.4-10.4); MONOCYTES % 13.6 % (2.0-8.0); NEUTROPHILS % 67.5 % (40.0-76.0); PLATELET 302 x1000/uL (130-400); RED BLOOD CELL COUNT 2.66 mill/uL (4.7-6.1); RED CELL DISTRIBUTION WIDTH 16.1 % (11.6-14.6)
[2017-07-06 07:05] LABS: CARBON DIOXIDE 28 mEq/L (21-32); CHLORIDE 112 mEq/L (98-107)
[2017-07-06] MEDS: BLOOD SUGAR DIAGNOSTIC STRIP TEST SCH ×4 (07:40→21:04)
[2017-07-06 08:00] VITALS: BP 116/49
[2017-07-06] MEDS: INSULIN LISPRO 100 UNITS/ML SUBCUT SCH ×4 (08:29→21:05)
[2017-07-06] MEDS: BUDESONIDE 0.5MG/2ML NEB HHN SCH ×2 (08:37→20:53)
[2017-07-06 12:00] VITALS: BP 113/44
[2017-07-06 16:00] VITALS: BP 119/49
[2017-07-06] MEDS: DEXT 5%/0.45% NACL 1000ML 1,000 ML IV SCH (16:48)
[2017-07-06 20:00] VITALS: BP 151/57
[2017-07-06] MEDS: LEVOFLOXACIN 250MG PREMIX 50 ML IV SCH (20:07)
[2017-07-06] MEDS: ENOXAPARIN 40MG/0.4ML SYR SUBCUT SCH (20:08)
[2017-07-06] MEDS: VANCOMYCIN 1250MG in DEXTROSE 5% WATER 250ML IV SCH (21:06)
[2017-07-06] MEDS ORDERED: VANCOMYCIN 1 G PREMIX 200 ML IV SCH (22:00)
[2017-07-07] VITALS: BP 151/52
[2017-07-07] MEDS: IPRATROPIUM/ALBUTEROL 0.5-3(2.5)MG/3ML NEB HHN SCH ×4 (03:19→20:55)
[2017-07-07 07:27] LABS: HEMATOCRIT 24.8 % (42.0-52.0); MEAN CORPUSCULAR VOLUME 93.2 fL (80.0-94.0); RED BLOOD CELL COUNT 2.67 mill/uL (4.7-6.1); RED CELL DISTRIBUTION WIDTH 16.2 % (11.6-14.6)
[2017-07-07 07:30] LABS: CARBON DIOXIDE 27 mEq/L (21-32); CHLORIDE 113 mEq/L (98-107)
[2017-07-07] MEDS: BLOOD SUGAR DIAGNOSTIC STRIP TEST SCH ×4 (07:40→21:00)
[2017-07-07] MEDS: BUDESONIDE 0.5MG/2ML NEB HHN SCH ×2 (07:43→20:55)
[2017-07-07 08:00] VITALS: BP 173/49
[2017-07-07 08:10] VITALS: BP 119/53
[2017-07-07] MEDS: INSULIN LISPRO 100 UNITS/ML SUBCUT SCH ×4 (09:14→21:00)
[2017-07-07 12:00] VITALS: BP 107/48
[2017-07-07 14:14] LABS: PLATELET 319 x1000/uL (130-400)
[2017-07-07 16:00] VITALS: BP 107/47
[2017-07-07] MEDS: LEVOFLOXACIN 250MG PREMIX 50 ML IV SCH (19:54)
[2017-07-07] MEDS: ENOXAPARIN 40MG/0.4ML SYR SUBCUT SCH (19:54)
[2017-07-07 20:00] VITALS: BP 151/56
[2017-07-07] MEDS: VANCOMYCIN 1250MG in DEXTROSE 5% WATER 250ML IV SCH (21:01)
[2017-07-08] VITALS: BP 164/58
[2017-07-08] MEDS: IPRATROPIUM/ALBUTEROL 0.5-3(2.5)MG/3ML NEB HHN SCH ×4 (00:49→21:06)
[2017-07-08 04:00] VITALS: BP 179/60
[2017-07-08] MEDS: BLOOD SUGAR DIAGNOSTIC STRIP TEST SCH ×4 (06:49→21:40)
[2017-07-08 07:19] LABS: CARBON DIOXIDE 26 mEq/L (21-32); CHLORIDE 110 mEq/L (98-107)
[2017-07-08 08:00] VITALS: BP 152/50
[2017-07-08] MEDS: INSULIN LISPRO 100 UNITS/ML SUBCUT SCH ×4 (09:17→21:42)
[2017-07-08] MEDS: BUDESONIDE 0.5MG/2ML NEB HHN SCH ×2 (09:22→21:06)
[2017-07-08 12:00] VITALS: BP 126/53
[2017-07-08 16:00] VITALS: BP 149/65
[2017-07-08 20:00] VITALS: BP 180/65
[2017-07-08] MEDS: LEVOFLOXACIN 250MG PREMIX 50 ML IV SCH (20:26)
[2017-07-08] MEDS: ENOXAPARIN 40MG/0.4ML SYR SUBCUT SCH (20:26)
[2017-07-09] VITALS: BP_SYST 116; BP_SYST 138; BP_DIAS 57; BP_DIAS 94
[2017-07-09] MEDS: IPRATROPIUM/ALBUTEROL 0.5-3(2.5)MG/3ML NEB HHN SCH ×3 (01:36→14:36)
[2017-07-09 04:00] VITALS: BP 137/69
[2017-07-09] MEDS: BLOOD SUGAR DIAGNOSTIC STRIP TEST SCH ×3 (06:51→18:02)
[2017-07-09] MEDS: BUDESONIDE 0.5MG/2ML NEB HHN SCH (07:50)
[2017-07-09 08:00] VITALS: BP 129/56
[2017-07-09] MEDS: INSULIN LISPRO 100 UNITS/ML SUBCUT SCH ×3 (08:17→18:04)
[2017-07-09] MEDS ORDERED: VANCOMYCIN 750 MG PREMIX 150 ML IV SCH (09:00)
[2017-07-09 12:00] VITALS: BP 128/64
[2017-07-09] MEDS ORDERED: LEVOFLOXACIN 250MG TABLET PO SCH (13:00)
[2017-07-09 16:00] VITALS: BP 123/61
[2017-07-09 16:55] VITALS: BP 123/61
== END 2017-07-09 18:49 | DRG 177 ==
LOC: ER 12:51 → 7WST 14:29 → ENRESERV 15:33
PROVIDERS: ADMIT Hospitalist; ATTEND Hospitalist
DX: J69.0 Pneumonitis due to inhalation of food and vomit (principal); J96.01 Acute respiratory failure with hypoxia; I11.0 Hypertensive heart disease with heart failure; I50.9 Heart failure, unspecified; I65.22 Occlusion and stenosis of left carotid artery; D64.9 Anemia, unspecified; E11.9 Type 2 diabetes mellitus without complications; J44.1 Chronic obstructive pulmonary disease with (acute) exacerbation; H54.8 Legal blindness, as defined in USA; E03.9 Hypothyroidism, unspecified; F03.90 Unspecified dementia, unspecified severity, without behavioral disturbance, psychotic disturbance, mood disturbance, and anxiety; I25.10 Atherosclerotic heart disease of native coronary artery without angina pectoris; R47.02 Dysphasia; Z86.73 Personal history of transient ischemic attack (TIA), and cerebral infarction without residual deficits; Z86.74 Personal history of sudden cardiac arrest; Z99.81 Dependence on supplemental oxygen; Z87.440 Personal history of urinary (tract) infections
CPT/HCPCS: 36415; 36600; 71010; 80048; 80053; 80202; 82375; 82805; 82962; 83880; 84484; 85025; 85027; 85610; 92610; 93005; 93970; 94640; 94664; 99285; A6261; C1893; J1650; J1815; J1956; J3370; J7030; J7060; J7620; J7626